=== PATIENT | female | born 1970 | race African-American/Black ===

== ENCOUNTER 2018-11-02 13:20 | Emergency (ER) | payer SELFPAY ==
[~2018-11-02] VITALS: Ht 170.2 cm; Wt 68.0 kg
[2018-11-02] MEDS ORDERED: HYDROCODONE/ACETAMINOPHEN 10/325MG TABLET PO ONE (16:45)
[2018-11-02 17:24] VITALS: BP 135/74
== END 2018-11-02 17:45 | disposition home or self-care (01) ==
LOC: ER 13:20
DX: G89.29 Other chronic pain (principal)
CPT/HCPCS: 99283; Z7610

== ENCOUNTER 2018-11-06 12:22 | Emergency (ER) | payer SELFPAY ==
[~2018-11-06] VITALS: Ht 170.2 cm; Wt 70.0 kg
[2018-11-06] MEDS ORDERED: KETOROLAC 30MG/ML VIAL IV STA (14:59)
[2018-11-06 15:24] LABS: CLARITY URINE CLOUDY (CLEAR); COLOR URINE DARK YELLOW (YELLOW); KETONES URINE TRACE (NEGATIVE); LEUKOCYTE ESTERASE URINE NEGATIVE (NEGATIVE); NITRITE URINE NEGATIVE (NEGATIVE); OCCULT BLOOD URINE NEGATIVE (NEGATIVE); PH URINE 5.5 (4.5-8.0); PROTEIN URINE NEGATIVE (NEGATIVE); SPECIFIC GRAVITY URINE 1.024 (1.005-1.030); UROBILINOGEN URINE 0.2 E.U./dL (0.2-1.0)
[2018-11-06 15:28] LABS: BASOPHILS % 0.5 % (0.0-2.0); EOSINOPHILS % 0.3 % (0.0-5.0); HEMATOCRIT. 39.8 % (36.0-48.0); HEMOGLOBIN. 13.5 g/dL (12.0-16.0); LYMPHOCYTES % 36.7 % (20.0-50.0); MEAN CORPUSCULAR HEMOGLOBIN 32.1 pg (28.0-32.0); MEAN CORPUSCULAR VOLUME 94.8 fL (81.0-99.0); MEAN PLATELET VOLUME 8.4 fl (7.4-10.4); MONOCYTES % 4.7 % (2.0-8.0); NEUTROPHILS % 57.8 % (40.0-76.0); PLATELET 243 x1000/uL (130-400); RED CELL DISTRIBUTION WIDTH 13.4 % (11.6-14.6)
[2018-11-06 15:35] LABS: CHLORIDE 104 mEq/L (98-107)
[2018-11-06 16:34] VITALS: BP 125/84
== END 2018-11-06 16:35 | disposition home or self-care (01) ==
LOC: ER 12:22
DX: N39.0 Urinary tract infection, site not specified (principal); G89.29 Other chronic pain; M54.5 Low back pain; Z90.710 Acquired absence of both cervix and uterus
CPT/HCPCS: 36415; 80053; 81003; 83690; 85025; 96374; 99283; J1885; Z7610